=== PATIENT | male | born 1980 | race Caucasian/White ===

== ENCOUNTER 2022-08-15 10:48 | Emergency (ER) | payer OTHER, SELFPAY ==
[2022-08-15 10:53] VITALS: BP 149/87; PULSE 93; RESP 17; TEMP 36.4; O2SAT 96; BMI 34.4
[2022-08-15 11:14] LABS: MANUAL DIFF FLAG NO
[2022-08-15 11:18] LABS: Basophils Percent Auto 0.4 % (0-2); Eosinophils Percent Auto 0.7 % (0-4); Hematocrit 44.8 % (42.0-52.0); Hemoglobin 15.2 g/dl (14.0-18.0); Imm Gran Abs Auto 0.03 X10*3/uL (0.00-0.03); Imm Gran Pct Auto 0.5 % (0.0-0.4); Lymphocytes Absolute Auto 2.2 X10*3/uL (1.2-4.9); Lymphocytes Percent Auto 38.6 % (20-40); Mean Corpuscular HGB Conc 33.9 g/dl (31.0-36.0); Mean Corpuscular Hemoglobin 29.9 pg (27.0-33.0); Mean Corpuscular Volume 88.2 fL (80.0-98.0); Mean Platelet Volume 8.7 fL (9.4-12.4); Monocytes Absolute Auto 0.5 X10*3/uL (0.1-1.2); Monocytes Percent Auto 8.4 % (2-11); Neutrophils Absolute Auto 2.9 x10*3/uL (2.0-8.3); Neutrophils Percent Auto 51.4 % (45-73); Platelet Count 316 X10*3/uL (160-400); Red Blood Count 5.08 X10*6/uL (4.60-5.80); Red Cell Distribution Width 12.4 % (11.0-16.0); White Blood Count 5.6 X10*3/uL (4.8-10.8)
[2022-08-15 11:21] LABS: INTERNATIONAL NORM RATIO 1.1 (0.9-1.1)
[2022-08-15 11:24] LABS: Partial Thromboplastin Time 33.6 SEC (26.0-36.4)
[2022-08-15 11:38] LABS: Anion Gap 21 (12-20); Blood Urea Nitrogen 7 mg/dL (9-16); Calcium 9.1 mg/dL (8.4-10.2); Carbon Dioxide 19 mmol/L (22-29); Chloride 105 mmol/L (96-108); Creatinine Clr Calc Pharmacy 140.2; Estimated Glomerular Filt Rate > 60; Glucose Random 104 mg/dL (60-115); Potassium 3.5 mmol/L (3.3-5.1); Sodium 141 mmol/L (135-145)
[2022-08-15 11:39] LABS: Troponin-I High Sensitivity < 3.5 ng/L (<3.5-35.0)
[2022-08-15 11:40] LABS: COVID-19 Test Negative (Negative)
[2022-08-15 14:56] VITALS: BP 150/89; PULSE 87; RESP 23; TEMP 36.7; O2SAT 99
[2022-08-15 15:17] VITALS: BP 151/86; PULSE 80; RESP 14; TEMP 36.8; O2SAT 99
--- NOTE | 2022-08-15 15:18 | ECG_ITS ---
Test Reason : CHEST PAIN Blood Pressure : / mmHG Vent. Rate : 080 BPM Atrial Rate : 080 BPM P-R Int : 152 ms QRS Dur : 104 ms QT Int : 424 ms P-R-T Axes : 014 090 016 degrees QTc Int : 489 ms Normal sinus rhythm Rightward axis Incomplete right bundle branch block Abnormal ECG Abnormal ECG ST less depressed in Anterior leads Inferior leads
[2022-08-15 15:47] LABS: Alanine Aminotransferase 49 U/L (0-40); Albumin Level 4.9 g/dL (3.5-5.0); Alkaline Phosphatase 79 U/L (39-117); Aspartate Amino Transferase 27 U/L (5-37); Bilirubin Direct 0.2 mg/dL (0.0-0.5); Bilirubin Total 0.6 mg/dL (0.0-1.0); Ethanol 134 mg/dL; Lipase 24 U/L (8-78); Total Protein 8.1 g/dL (6.5-8.0)
[2022-08-15 15:59] LABS: Troponin-I High Sensitivity < 3.5 ng/L (<3.5-35.0)
--- NOTE | 2022-08-15 17:01 | ED.GENADULT ---
HPI - General Adult General Chief complaint: General Medical Stated complaint: possible heart attack Time Seen by Provider: 08/15/22 15:07 Source: patient Mode of arrival: ambulatory Limitations: no limitations History of Present Illness HPI narrative: Patient presents emergency department for evaluation of chest pain. He states that just prior to his arrival to the emergency department he had a near syncopal episode where he was breaking out in sweats, and felt as though he was going to pass out. Denies any actual syncopal event. Was able to sit down and relax backwards. He reports associated with substernal and left-sided chest pain during this time. He does endorse having a ?long night?. He states that he had excessive alcohol consumption and cocaine usage between the hours of 8 and 09:00 this morning. He states that he does not typically use cocaine, but has consumed alcohol in the past without having a similar reaction. He denies any significant past medical history, states he is not taking any medications on a routine basis. Denies fevers, chills, headache, dizziness, lightheadedness, neck pain, neck stiffness, palpitations, shortness of breath, difficulty breathing, nausea no vomiting, abdominal pain, numbness or tingling of the extremities, generalized weakness. Related Data Allergies Allergy/AdvReac Type Severity Reaction Status Date / Time No Known Allergies Allergy Unverified 07/25/20 15:58 Review of Systems Review of Systems: Constitutional : No Weight loss, No Fever, No Chills ENT/Mouth :? No sore throat, No Rhinorrhea Eyes: No Eye Pain, No Swelling Cardiovascular : pos Chest Pain, no SOB, no Dyspnea on Exertion, No Orthopnea, No Edema, No Palpitations Respiratory : No Cough, No Sputum Gastrointestinal : No Nausea, No Vomiting, No Diarrhea, No abdominal Pain, No Hematochezia, No Melena Genitourinary : No Dysuria, No Urinary Frequency Musculoskeletal : No joint pain, No Myalgias, No Joint Swelling Skin : No Skin Lesions, No rash Neuro : No Weakness, No Numbness, No Dizziness, No Headache Psych : No Anxiety/Panic, No Depression Heme/Lymph: No Bruising, No Lymphadenopathy Endocrine : No Polyuria, No Polydipsia ? Yes all other systems are reviewed and are negative [facility] Past Medical History Attestation statement: The following information was validated with the patient. Source: old records reviewed Social History Social History Alcohol intake: current Patient Tobacco Use Status: Never used Tobacco Smoked in Last 30 Days: No Use of substances other than those prescribed or required for medical reasons: Yes Substance Use Type: Crack/Cocaine Advance Directives: No Advance Directives Information Provided: Yes Physical Exam ED Vital Signs: Vital Signs - 24 hr 08/15/22 10:53 08/15/22 14:56 08/15/22 15:17 Temperature 97.5 F 98.1 F 98.3 F Pulse Rate 93 87 80 Respiratory Rate 17 23 H 14 Blood Pressure 149/87 H 150/89 H 151/86 H Pulse Oximetry 96 99 99 Oxygen Delivery Method Room Air Room Air Room Air BMI result Body Mass Index 34.4 Appearance: Alert.?Oriented to person, place and time. No acute distress.?Normal affect. Eyes: Pupils equal, round and reactive to light.? ENT: Pharynx normal.?? Neck: Normal inspection.? Neck supple.?? CVS: Heart sounds normal. Normal heart rate and rhythm. No murmurs, gallops, rubs.? Pulses normal.?? Respiratory: No respiratory distress.? Lung sounds clear to auscultation bilaterally?? Abdomen: Soft and non-tender. Normoactive bowel sounds. Skin: Skin warm and dry.? Normal skin color.? Extremities: No lower extremity edema.? No calf ttp? Neuro: Moves all extremities spontaneously. Sensation intact bilaterally. CN II-XII intact. No focal neuro deficits. Ambulates with normal steady gait. Course Course Course Narrative: Patient is a 42-year-old female with a past medical history of GERD, BPH, who presents emergency department for evaluation after a near syncopal episode. At the time of my examination he is overall well-appearing, he is mildly hypertensive which he states is not typical for him. Will obtain CBC to evaluate for leukocytosis/ anemia, CMP and lipase to evaluate for abnormal electrolytes /abnormal renal function/ abnormal hepatic/biliary function, EKG and troponin to evaluate for ischemia/ACS. Chest x-ray to evaluate for consolidation/ infiltrate/ mass/ pulmonary congestion. Reevaluation(s) Reevaluation #1: CBC is overall unremarkable. CMP is overall unremarkable, lipase normal. Troponin <3.5, EKG reveals normal sinus rhythm with incomplete right bundle branch block and prolonged QT. No acute ischemic findings. Upon asking patient he does report a history of a right bundle-branch block, states he is followed by a cloth opener hand at [facility] Dr. Molina. Will obtain delta troponin to exclude ACS. PERC negative unlikely pulmonary embolism. Reveal medical record indicates a prescription for Cialis which he states he takes only as needed not on daily basis, and adamantly denies any usage of this last night. He is also prescribed Qsyma for weight loss. Time: 15:00 Reevaluation #2: At this time, patient reports feeling much better, would like to be discharged home. Delta troponin is negative, unlikely to be ACS. Repeat EKG reveals normal sinus rhythm again with incomplete right bundle branch block, QT remains prolonged but is improved currently 489, which is improved from prior 547. Vital signs remained stable. He is ambulatory with a steady gait. At this time patient is stable for discharge home, discussed worrisome signs and symptoms return back to the emergency department for, advised to refrain from use of alcohol and cocaine especially in combination, advised outpatient follow-up with primary care provider within 1-3 days. Patient verbalizes understanding, was discharged home in stable condition. Time: 17:13 Medical Decision Making Medical Records Medical records reviewed: Yes I reviewed the patient's medical records. Lab Data Lab results reviewed: Yes I reviewed the patient's lab results. Result diagrams: 08/15/22 11:04 08/15/22 11:04 Labs: Lab Results 08/15/22 08/15/22 08/15/22 Range/Units 11:04 11:04 11:04 WBC 5.6 (4.8-10.8) X10*3/uL RBC 5.08 (4.60-5.80) X10*6/uL Hgb 15.2 (14.0-18.0) g/dl Hct 44.8 (42.0-52.0) % MCV 88.2 (80.0-98.0) fL MCH 29.9 (27.0-33.0) pg MCHC 33.9 (31.0-36.0) g/dl RDW 12.4 (11.0-16.0) % Plt Count 316 (160-400) X10*3/uL MPV 8.7 L (9.4-12.4) fL Immature Gran % (Auto) 0.5 H (0.0-0.4) % Neut % (Auto) 51.4 (45-73) % Lymph % (Auto) 38.6 (20-40) % [place] % (Auto) 8.4 (2-11) % Eos % (Auto) 0.7 (0-4) % Baso % (Auto) 0.4 (0-2) % Lymph # (Auto) 2.2 (1.2-4.9) X10*3/uL [place] # (Auto) 0.5 (0.1-1.2) X10*3/uL Eos # (Auto) 0.0 (0.0-0.4) X10*3/uL Baso # (Auto) 0.0 (0.0-0.2) X10*3/uL Abs Immat Gran (auto) 0.03 (0.00-0.03) X10*3/uL Absolute Neuts (auto) 2.9 (2.0-8.3) x10*3/uL Absolute Nucleated RBC 0.000 (0.0-0.012) X10*3/uL Nucleated RBC % (auto) 0.0 (0.0-0.2) /100WBC PT (10.0-13.1) SEC INR (0.9-1.1) APTT (26.0-36.4) SEC Sodium 141 (135-145) mmol/L Potassium 3.5 (3.3-5.1) mmol/L Chloride 105 (96-108) mmol/L Carbon Dioxide 19 L (22-29) mmol/L Anion Gap 21 H (12-20) BUN 7 L (9-16) mg/dL Creatinine 0.79 (0.5-1.4) mg/dL Estim Creat Clear Calc 140.2 Estimated GFR > 60 Random Glucose 104 (60-115) mg/dL Calcium 9.1 (8.4-10.2) mg/dL Total Bilirubin 0.6 (0.0-1.0) mg/dL Direct Bilirubin 0.2 (0.0-0.5) mg/dL AST 27 (5-37) U/L ALT 49 H (0-40) U/L Alkaline Phosphatase 79 (39-117) U/L Troponin I High Sens < 3.5 (<3.5-35.0) ng/L Total Protein 8.1 H (6.5-8.0) g/dL Albumin 4.9 (3.5-5.0) g/dL Lipase 24 (8-78) U/L Ethyl Alcohol 134 mg/dL COVID-19 ([facility]) (Negative) COVID-19 Clin Com 08/15/22 08/15/22 08/15/22 Range/Units 11:04 11:04 15:35 WBC (4.8-10.8) X10*3/uL RBC (4.60-5.80) X10*6/uL Hgb (14.0-18.0) g/dl Hct (42.0-52.0) % MCV (80.0-98.0) fL MCH (27.0-33.0) pg MCHC (31.0-36.0) g/dl RDW (11.0-16.0) % Plt Count (160-400) X10*3/uL MPV (9.4-12.4) fL Immature Gran % (Auto) (0.0-0.4) % Neut % (Auto) (45-73) % Lymph % (Auto) (20-40) % [place] % (Auto) (2-11) % Eos % (Auto) (0-4) % Baso % (Auto) (0-2) % Lymph # (Auto) (1.2-4.9) X10*3/uL [place] # (Auto) (0.1-1.2) X10*3/uL Eos # (Auto) (0.0-0.4) X10*3/uL Baso # (Auto) (0.0-0.2) X10*3/uL Abs Immat Gran (auto) (0.00-0.03) X10*3/uL Absolute Neuts (auto) (2.0-8.3) x10*3/uL Absolute Nucleated RBC (0.0-0.012) X10*3/uL Nucleated RBC % (auto) (0.0-0.2) /100WBC PT 13.0 (10.0-13.1) SEC INR 1.1 (0.9-1.1) APTT 33.6 (26.0-36.4) SEC Sodium (135-145) mmol/L Potassium (3.3-5.1) mmol/L Chloride (96-108) mmol/L Carbon Dioxide (22-29) mmol/L Anion Gap (12-20) BUN (9-16) mg/dL Creatinine (0.5-1.4) mg/dL Estim Creat Clear Calc Estimated GFR Random Glucose (60-115) mg/dL Calcium (8.4-10.2) mg/dL Total Bilirubin (0.0-1.0) mg/dL Direct Bilirubin (0.0-0.5) mg/dL AST (5-37) U/L ALT (0-40) U/L Alkaline Phosphatase (39-117) U/L Troponin I High Sens < 3.5 (<3.5-35.0) ng/L Total Protein (6.5-8.0) g/dL Albumin (3.5-5.0) g/dL Lipase (8-78) U/L Ethyl Alcohol mg/dL COVID-19 ([facility]) Negative (Negative) COVID-19 Clin Com See Note Imaging Data Chest x-ray: Radiologist's impression: XR/XR chest 1V IMPRESSION: No acute cardiopulmonary findings. ECG Data Attestation: I personally reviewed and interpreted this ECG as follows: Prior ECG tracings: not available for review Interpretation: Rate: 93 Rhythm:? Normal sinus rhythm with incomplete right bundle-branch block Normal P waves.? Normal LATA.?? Normal QRS complex.?? ST T wave :??No ST elevation, no ST depression, no T-wave inversion qTC: Prolonged, 547 The study has been interpreted contemporaneously by me. Discharge Plan Discharge Clinical Impression: Chest pain Patient Disposition: Home, Self-Care Instructions: Chest Pain (DC) Additional Instructions: As we discussed, your testing today was normal, there is no evidence of heart attack Please refrain from the use of alcohol, as well as cocaine, especially in combination. You should return to emergency department with any new or worsening symptoms or concerns such as severe worsening chest pain, dizziness, lightheadedness, near passing out episodes, nausea with persistent vomiting, abdominal pain, numbness or tingling of the extremities, or generalized weakness. Please follow-up with your primary care provider and/or cloth opener hand within 2-3 days Interventions: ED Discharge Assessment Last Done: 08/15/22 17:47 Discharge Date/Time: 08/15/22 17:47
== END 2022-08-15 17:47 | disposition home or self-care (01) ==
PROVIDERS: Nurse Practitioner Family; Emergency Provider Emergency Medicine
DX: R07.9 Chest pain, unspecified (principal); Z20.822 Contact with and (suspected) exposure to COVID-19; Z79.899 Other long term (current) drug therapy
CPT/HCPCS: 36415; 71045; 80048; 80076; 82077; 83690; 84484; 85025; 85610; 85730; 87635; 93005; 99283; 99284